=== PATIENT | male | born 1975 | race Caucasian/White ===

== ENCOUNTER 2024-12-12 08:47 | Emergency (ER) | payer BC, OTHER, SELFPAY ==
[2024-12-12 08:48] VITALS: BP 146/104; PULSE 76; RESP 20; TEMP 36.3; O2SAT 99
--- OUTSIDE RECORDS SUMMARY | 2024-12-12 08:54 | XMS_ITS | Encounter Summary ---
Author Organization [facility] Address [address] [place] [address] Care Team Providers Care Correction Officer Head Name Role Phone Jimbo Meier MD Primary Care Provider [phone] Encounter Details Date Type Department Care Team (Late st Contact Info) Description 12/09/2024 External Device Data [facility] ABSTRACTION Provider, Abstract NO ADDRESS ON FILE Social History Tobacco Use Types Packs/Day Years Used Date Smoking Tobacco: Never Passive Smoke Exposure: Never Smokeless Tobacco: Never Alcohol Use Standard Drinks/Week Comments Yes 3 (1 standard drink = 0.6 oz pur e alcohol) Feeling Safe Answer Date Recorded Are you in a relationship wi th someone who hurts you emotionally and/or physically? 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
--- OUTSIDE RECORDS SUMMARY | 2024-12-12 08:54 | XMS_ITS | Clinical Summary ---
Author Organization [facility] Address [address] [place] [address] Care Team Providers Care Automobile Spring Repairer Name Role Phone Jimbo Meier MD Primary Care Provider [phone] Allergies Active Allergy Reactions Criticality Noted Date Comments No Known Allergies 04/26/2004 Medications atenoloL (TENORMIN) 25 mg tablet Take 1 Tablet (25 mg) by mouth daily. 90 Tablet 3 1 Active Additional Information Patient not taking.Reported on 11/06/2023 buPROPion HCL (Wellbutrin XL) 300 mg Extended Release 24 hour tablet Take 1 Tablet (300 mg) by mouth daily in the morning. 30 Tablet 6 3 Active Additional Information Patient not taking.Reported on 11/06/2023 tadalafil (CIALIS) 5 mg tablet Take 1 Tablet (5 mg) by mouth 1 time daily as needed for Erectile Dysfunction. 90 Tablet 3 4 Active sildenafiL, pulm.hypertension , (REVATIO) 20 mg TabletIndications :Other male erectile dysfunction TAKE 1 TABLET (20 MG) BY MOUTH 1 TIME DAILY NEEDED (ED). 30 Tablet 6 5 Active dextroamphetamine -amphetamine (ADDERALL) 20 mg tabletIndications :Attention deficit disorder (ADD) without hyperactivity Take 1 Tablet (20 mg) by mouth 2 times daily. Max Daily Amount: 40 mg 60 Tablet 5 Active Active Problems Patient Care Coordination No te Formatting of this note migh t be different from the original. 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 10/23/2018 Vitamin B12 deficiency (non anemic) 10/23/2018 Adjustment reaction 08/08/2011 Male infertility, unspecified 10/08/2006 Resolved Problems Problem Noted Date Diagnosed Date Resolved Date ADD (attention deficit disorder) 11/24/2013 11/30/2016 Pain in limb 02/26/2006 08/08/2011 ACUTE SINUSITIS NOS 09/11/2004 08/08/19 12 GENITAL WARTS NOS 04/26/2004 08/08/2011 ALLERGY, UNSPECIFIED 04/26/2004 012 Encounters Date Type Department Care Team Description 12/09/2024 External Device Data [facility] ABSTRACTION Provider, Abstract 12/08/2024 External Device Data [facility] ABSTRACTION Provider, Abstract 11/10/2024 [facility] Care [address], [place] [address] Jimbo Meier MD Attention deficit disorder (ADD) without hyperactivity 11/03/2024 External Device Data [facility] ABSTRACTION Provider, Abstract 10/13/[address] [address] Jimbo Meier MD Attention deficit disorder (ADD) without hyperactivity 09/29/2024 External Device Data [facility] ABSTRACTION Provider, Abstract 09/29/2024 External Device Data [facility] ABSTRACTION Provider, Abstract 09/26/2024 External Device Data [facility] ABSTRACTION Provider, Abstract 09/25/2024 External Device Data [facility] ABSTRACTION Provider, Abstract 09/15/2024 External Device Data [facility] ABSTRACTION Provider, Abstract from Last 3 Months Immunizations Immunization Administration Dates Next Due (ADACEL/BOOSTRIX)(10 YR UP) TDAP VACCINE, 0.5ML, IM 03/06/2023,08/25/2013 Adacel Vaccine > 7 Yo IM 03/06/2023 Influenza Seasonal Unspecifi ed Formulation IM 04/21/2016,03/31/2015,2014 Family History Medical History Relation Name Comments Healthy Brother Healthy Father Hypertension Mother Colon Cancer Neg Hx Relation Name Status Comments Brother Father Mother Social History Tobacco Use Types Packs/Day Years Used Date Smoking Tobacco: Never Passive Smoke Exposure: Never Smokeless Tobacco: Never Tobacco Cessation:Counseling Given: Not Answered Alcohol Use Standard Drinks/Week Comments Yes 3 (1 standard drink = 0.6 oz pur e alcohol) Feeling Safe Answer Date Recorded Are you in a relationship wi th someone who hurts you emotionally and/or physically? 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 Gender Identity Not on file Sexual Orientation Not on file Occupation Industry Job Start Date Job End Date Not on file Not on file Not on file Not on file Last Filed Vital Signs Vital Sign Reading Time Taken Comments Blood Pressure 134/86 11/06/2023 10:43 AM CDT Pulse 64 11/06/2023 10:43 AM CDT Temperature 36.7 C (98.1 F) 11/06/2023 10:43 AM CDT Respiratory Rate 14 05/08/2023 1:54 PM CDT Oxygen Saturation 97% 11/06/2023 10: 43 AM CDT Inhaled Oxygen Concentration - - Weight 100.9 kg (222 lb 6.4 oz) 024 10:43 AM CDT Height 180.3 cm (5' 11 ) 11/06/2023 10: 43 AM CDT Body Mass Index 31.02 11/06/2023 10:43 AM CDT Plan of Treatment Health Maintenance Due Date Last Done Comments HEPATITIS B VACCINES (1 of 3 - 19+ 3-dose series) 1995 FIT-DNA Q 3 years 2021 FIT/FOBT Q 1 year 2021 Flex Sig/CT Colonography Q 5 years 2021 INFLUENZA VACCINE (#1) 2024 , 05/25/2021, 04/21/2016, Additional history exists Preventative Visit- Commercial 07/22/2024 0 03/06/2023, 02/01/2022, 05/25/2021, Additional history exists DTAP/TDAP/TD VACCINES (4 - T d or Tdap) 03/06/2033 03/06/2023, 03/06/2023, 08/25/2013 COLORECTAL SCREENING 04/17/2033 04/17/2023, 04/17/20 23 Colorectal Cancer Screening 04/17/2033 Procedures Procedure Name Priority Date/Time Associated Diagnosis Comments COLONOSCOPY REPORT 04/17/2023 9: 35 AM CDT from Last 3 Months or Most Recently Relevant to Health Maintenance Results * COLONOSCOPY REPORT (04/17/2023 9:35 AM CDT) Narrative Procedure Note Lula Goldman MD - 04/17/2023 9:35 AM CDT [facility] Endoscopy Patient Name: Isai Prakash Procedure Date: 04/17/2023 Date of : 1975 Attending MD: Lula Goldman MD, Procedure: Colonoscopy Indications: Screening for colorectal malignant neoplasm, first time. Providers: Lula Goldman MD Referring MD: Jimbo Meier MD Medicines: Monitored Anesthesia Care Complications: No immediate complications. Procedure: Informed consent was obtained for the procedure, including moderate sedation after risks were discussed. Based on the pre-procedure assessment, including review of the patient's medical history, medications, allergies, and review of systems, the patient was deemed to be an appropriate candidate for sedation. A timeout was performed. Continuous ECG monitoring, pulse oximetry, blood pressure monitoring, and direct observation were performed. The procedure was aborted. The colonoscope was not inserted. Medications were given. The colonoscopy was performed without difficulty. The quality of the bowel preparation was inadequate. Estimated Blood Loss: Estimated blood loss: none. Findings: Semi-liquid stool was found in the recto-sigmoid colon, in the descending colon and in the transverse colon, precluding visualization. Procedure stopped. Impression: - Preparation of the colon was inadequate. - Stool in the recto-sigmoid colon, in the descending colon and in the transverse colon. - No specimens collected. Recommendation: - Repeat colonoscopy in 6 months at time of repeat upper endoscopy. - Follow prep and clear liquid diet instructions next time, so that we can get a better look. Lula Goldman MD 04/17/2023 9:34:52 AM This report has been signed electronically. Number of Addenda: [address]; [place] [address] Lula Goldman MD GI PROCEDURE ORDERABLES Final Result from Last 3 Months or Most Recently Relevant to Health Maintenance Insurance [facility] BLUE PREFERRED Advance Directives For more information, please contact: [phone] * Full Code (Latest Code Status on File) Date Activated Date Inactivated Comments 04/17/2023 7:58 AM 04/17/2023 12:09 PM Care Teams Automobile Spring Repairer Relationship Specialty Start Date End Date Jimbo Meier MD [address] [place] [phone] PCP - General 02/17/07
--- OUTSIDE RECORDS SUMMARY | 2024-12-12 08:54 | XMS_ITS | Encounter Summary ---
Author Organization [facility] Address 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
--- OUTSIDE RECORDS SUMMARY | 2024-12-12 08:54 | XMS_ITS | Encounter Summary ---
Author Organization [facility] Address 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
--- OUTSIDE RECORDS SUMMARY | 2024-12-12 08:54 | XMS_ITS | Encounter Summary ---
Author Organization [facility] Address 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
--- OUTSIDE RECORDS SUMMARY | 2024-12-12 08:54 | XMS_ITS | Encounter Summary ---
Author Organization [facility] Address 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
--- OUTSIDE RECORDS SUMMARY | 2024-12-12 08:54 | XMS_ITS | Encounter Summary ---
Author Organization [facility] Address 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 HISTORY: sinus earnest, sore throat, cough, x 3-4 days, worse recently PHYSICAL EXAMINATION: EARS, NOSE, MOUTH AND THROAT: EARS: EFFUSION PRESENT BILATERALLY, TYMPANIC MEMBRANES INFLAMED BILATERALLY. ORAL: OROPHARYNX ERYTHEMATOUS. NECK/THYROID: Trachea midline. No thyroid enlargement, tenderness, or mass. No supraclavicular or cervical adenopathy. RESPIRATORY: Clear to auscultation and percussion. Normal respiratory effort. CARDIOVASCULAR: CARDIAC: Regular rhythm. No murmurs, rubs, or gallops. EDEMA/VARICOSITIES OF EXTREMITIES: No edema or varicosities. ASSESSMENT/PLAN: 461.9-SINUSITIS UNSPECIFIED rx MEDICATIONS: ZITHROMAX Z-JENNIFER ORAL TABLET 250 MG, DIRECTED, 1 Dispensed, 1 Fills, status: CONTINUED, 11/20/2006. FLONASE NASAL SUSPENSION 50 MCG/ACT, 2 Every Morning, 1 Fills, 30 Duration/Days Supply, status: NEWPRESCRIPTION, 11/20/2006. 606.9-MALE INFERTILITY discussed, analysis pend RETURN VISIT : Instructed to call if not improving. Electronically Signed by: Jimbo Meier MD on Monday, November 20, 2006 documented in this encounter Plan of Treatment Not on file documented as of this encounter Visit Diagnoses Not on filedocumented in this encounter Care Teams Director Of Food And Beverage Services Relationship Specialty Start Date End Date Jimbo Meier MD [address] [place] [phone] PCP - General 02/17/07 documented as of this encounter
--- OUTSIDE RECORDS SUMMARY | 2024-12-12 08:54 | XMS_ITS | Encounter Summary ---
Author Organization [facility] Address [address] [place] [address] Care Team Providers Care Med Peds Name Role Phone Jimbo Meier MD Primary Care Provider [phone] Encounter Details Date Type Department Care Team (Late st Contact Info) Description 02/09/2008 Outpatient Historical [facility] Dilia Gonsalez MD [address] [place] [address] [address] [place] [address] Social History Tobacco Use Types Packs/Day Years Used Date Smoking Tobacco: Never Alcohol Use Standard Drinks/Week Comments Yes 0 (1 standard drink = 0.6 oz pur e alcohol) Sex and Gender Information Value Date Recorded Sex Assigned at Not on file 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 Gender Identity Not on file Sexual Orientation Not on file documented as of this encounter Plan of Treatment Not on file documented as of this encounter Procedures Procedure Name Priority Date/Time Associated Diagnosis Comments PATHOLOGY Routine 02/09/2008 12:39 PM CDT documented in this encounter Results * PATHOLOGY (02/09/2008 12:39 PM CDT) FINAL REPORT [address] [address] Patient: ISAI WHITESIDE : 1975 Procedure Date: 02/09/2008 Accession Date: 02/09/2008 Case No: [id number] Ordering Dr: DILIA GONSALEZ Case types AW, BW, FW, NW and SH are performed by [facility] [place] [place], [place] SURGICAL PATHOLOGY & NON-GYNECOLOGIC CYTOPATHOLOGY REPORT DIAGNOSIS STOMACH, BIOPSY: - NO PATHOLOGIC DIAGNOSIS. ESOPHAGUS, BIOPSY: - CHRONIC INFLAMMATION, SLIGHT, COMPATIBLE WITH REFLUX. Specimen Description: (1) Gastric biopsy; (2) esophagus biopsy. Operative Procedure: EGD. Patient Information/History/Di agnosis: (1) Rule out H. pylori infection; (2) Rule out eosinophilic esophagitis. Gross: Two containers are received labeled Isai Whiteside. The first specimen is received in a container labeled biopsy gastric. It consists of a single piece of brooks tissue measuring 0.2 x 0.2 x 0.2 cm. The specimen is submitted entirely labeled A1. The second specimen is received in a container labeled cold biopsy esophagus. It consists of three pieces of translucent brooks tissue ranging from 0.1 to 0.2 cm in greatest dimension. The specimen is submitted entirely labeled B1. DONYA/NELDA 02.09.2008 02:36 pm Microscopic: The slides are labeled [id number], Olinda. Multiple levels of section of the gastric biopsy demonstrate fundic mucosa. No significant inflammation is identified. No organisms are seen with special stain for Helicobacter. Sections from the esophageal biopsy demonstrate esophageal squamous mucosa. A patchy lymphocytic infiltrate is focally present. There is no evidence of eosinophilic infiltrate. The features are suggestive of reflux. Note on use of immunocytochemistry reagents: This test was developed and its performance characteristic determined by [facility], Department of Laboratory Medicine. It has not been cleared or approved by the U.S. Food and Drug Administration. The FDA has determined that such clearance or approval is not necessary. The test is used for clinical purpose. It should not be regarded as investigational or for research. This laboratory is certified to perform high complexity clinical testing. [facility] 02.10.2008 10:59 am Staging Form: No ELECTRONIC SIGNATURE FOR MAURICE PULIDO M.D.- 02/10/08 03:59 pm INTERFACE SYSTEM Specimen of unknown material (specimen) 02/09/2008 12:39 PM CDT Dilia Gonsalez MD PATHOLOGY/CYTOLOGY ORDERABLE S Edited INTERFACE SYSTEM Refer to clinic/hospital department documented in this encounter Visit Diagnoses Not on filedocumented in this encounter Care Teams Med Peds Relationship Specialty Start Date End Date Jimbo Meier MD [address] [place] [phone] PCP - General 02/17/07 documented as of this encounter
--- OUTSIDE RECORDS SUMMARY | 2024-12-12 08:54 | XMS_ITS | Encounter Summary ---
Author Organization [facility] Address [address] [place] [address] Care Team Providers Care Multi Purpose Machine Operator Name Role Phone Jimbo Meier MD Primary Care Provider [phone] Encounter Details Date Type Department Care Team (Late st Contact Info) Description 11/20/2006 Outpatient [facility] Internal Medicine [address] [address] Jimbo Meier MD [address] [place] [address] [address] [place] [address] Social History Tobacco Use Types Packs/Day Years Used Date Smoking Tobacco: Never Assessed Sex and Gender Information Value Date Recorded Sex Assigned at Not on file 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 Gender Identity Not on file Sexual Orientation Not on file documented as of this encounter Last Filed Vital Signs Vital Sign Reading Time Taken Comments Blood Pressure 122/70 11/20/2006 10:15 AM CDT Pulse - - Temperature 36.4 C (97.6 F) 11/20/2006 10:15 AM CDT Respiratory Rate - - Oxygen Saturation - - Inhaled Oxygen Concentration - - Weight 96.2 kg (212 lb) 11/20/2006 10:15 AM CDT Height - - Body Mass Index - - documented in this encounter Plan of Treatment Not on file documented as of this encounter Visit Diagnoses Not on filedocumented in this encounter Care Teams Multi Purpose Machine Operator Relationship Specialty Start Date End Date Jimbo Meier MD [address] [address] [place] [phone] PCP - General 02/17/07 documented as of this encounter
--- OUTSIDE RECORDS SUMMARY | 2024-12-12 08:54 | XMS_ITS | Encounter Summary ---
Author Organization [facility] Address 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
--- OUTSIDE RECORDS SUMMARY | 2024-12-12 08:54 | XMS_ITS | Encounter Summary ---
Author Organization [facility] Address [address] [place] [address] Care Team Providers Care In Classroom Tutor Name Role Phone Jimbo Meier MD Primary Care Provider [phone] Encounter Details Date Type Department Care Team (Late st Contact Info) Description 10/24/2021 Refill [facility] Primary Care [address] [place] [address] Jimbo Meier MD [address] [place] [address] [address] [place] [address] Attention deficit disorder (ADD) without hyperactivity Social History Tobacco Use Types Packs/Day Years Used Date Smoking Tobacco: Never Smokeless Tobacco: Never Alcohol Use Standard Drinks/Week Comments Yes 0 (1 standard drink = 0.6 oz pur e alcohol) Sex and Gender Information Value Date Recorded Sex Assigned at Not on file 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 No / Unsure 09/25/2021 4:19 PM SENIOR LEAD J[employer] DEVELOPER documented as of this encounter Plan of Treatment Not on file documented as of this encounter Visit Diagnoses Diagnosis Attention deficit disorder (ADD) without hyperactivity documented in this encounter Care Teams In Classroom Tutor Relationship Specialty Start Date End Date Jimbo Meier MD [address] [place] [phone] PCP - General 02/17/07 documented as of this encounter
--- OUTSIDE RECORDS SUMMARY | 2024-12-12 08:54 | XMS_ITS | Encounter Summary ---
Author Organization [facility] Address [address] [place] [address] Care Team Providers Care Revenue Tax Specialist Name Role Phone Jimbo Meier MD Primary Care Provider [phone] Encounter Details Date Type Department Care Team (Late st Contact Info) Description 09/11/2004 Outpatient [facility] Internal Medicine [address] [address] Jimbo Meier MD [address] [place] [id number] Social History Tobacco Use Types Packs/Day Years Used Date Smoking Tobacco: Never Assessed Sex and Gender Information Value Date Recorded Sex Assigned at Not on file Legal Sex Male 4:59 AM LINEN CHECKER Gender Identity Not on file Sexual Orientation Not on file documented as of this encounter Last Filed Vital Signs Vital Sign Reading Time Taken Comments Blood Pressure 120/70 09/11/2004 4:00 PM LINEN CHECKER Pulse - - Temperature 37.9 C (100.3 F) 09/11/2004 4:00 PM LINEN CHECKER Respiratory Rate - - Oxygen Saturation - - Inhaled Oxygen Concentration - - Weight 90.3 kg (199 lb) 09/11/2004 4:00 PM LINEN CHECKER Height - - Body Mass Index - - documented in this encounter Plan of Treatment Not on file documented as of this encounter Visit Diagnoses Not on filedocumented in this encounter Care Teams Revenue Tax Specialist Relationship Specialty Start Date End Date Jimbo Meier MD [address] [address] PCP - General 02/17/07 documented as of this encounter
--- NOTE | 2024-12-12 09:11 | ED.DENTAL ---
HPI - Dental/Oral General Chief complaint: Dental/Oral Stated complaint: Mouth Pain Time Seen by Provider: 12/12/24 09:05 Source: patient and RN notes reviewed Mode of arrival: ambulatory Limitations: no limitations History of Present Illness HPI Narrative: 49-year-old male presents Express Care complaining of left lower dental pain for 1 week. Patient reports having history of cavities filled. Patient reports having pain with eating noticed swelling inside his left lower mouth. Patient denies any swelling or pain under his tongue, fevers, difficulty breathing, difficulty swallowing, or any other concerns. Patient says he has been taking a lot of ibuprofen to help with the pain with subtle relief. Patient rates his pain a 10. Patient was able to get a dental appointment next week. Patient also reports pain to the left upper gum line. Teeth map:  1. Pain and swelling 2. Pain Related Data Home Medications ?Medication ?Instructions ?Recorded ?Confirmed ?Last Taken ?Type dextroamphetamine-amphetamine 20 12/12/24 Unknown History mg tablet sildenafil (pulm.hypertension) 20 mg 12/12/24 Unknown History mg tablet Allergies Allergy/AdvReac Type Severity Reaction Status Date / Time No Known Allergies Allergy Verified 12/12/24 09:00 Review of Systems Review of Systems: CONSTITUTIONAL: Denies fever, chills, or sweats. EYES: Denies visual changes, redness, or discharge. ENT: Denies rhinorrhea, congestion, sore throat, trismus, difficulty swallowing, or otalgia. MOUTH: Positive for dental pain and swelling. Denies swelling under tongue or pain under tongue. CARDIOVASCULAR: Denies chest pain, palpitations, or edema. RESPIRATORY: Denies cough or dyspnea. GASTROINTESTINAL: Denies abdominal pain, nausea, vomiting, or diarrhea. GENITOURINARY: Denies dysuria or hematuria. SKIN: Denies rash or itching. MUSCULOSKELETAL: Denies back pain, joint pain, or myalgia. NEUROLOGIC: Denies headache, numbness, or weakness. PSYCHIATRIC: Denies anxiety or depression. All other systems reviewed are negative, except as documented in HPI. PMFSH Comments At the time of my signature, I reviewed and agree with the nursing past medical, surgical, social, and family history. There is no relevant family history pertinent to the patient complaint. Exam Narrative: GENERAL: This is a well-nourished, well-developed adult, in no apparent distress. They are non ill-appearing, nontoxic appearing. HEAD: normocephalic, atraumatic. EYES: Sclera clear/white. Conjunctiva normal. Vision is grossly intact. Extraocular movements intact EARS: External ears normal, Hearing grossly intact. NOSE: External nose normal THROAT: Mucous membranes moist, posterior pharynx clear, without erythema or swelling. Uvula midline. OROPHARYNX: Previous dental caries filled. No missing teeth. Left lower gum near 2nd molar is erythematous. No area of fluctuance or induration. Is tender to palpation. Left upper gum without erythema or swelling. No tenderness to palpation. Tongue is normal. No redness, swelling, or tenderness to palpation under the tongue. No suspicious lesions. NECK: Neck supple, non-tender without lymphadenopathy, masses or thyromegaly. CARDIOVASCULAR: Regular rate and rhythm RESPIRATORY: Respiratory rate normal, respiratory effort nonlabored, no respiratory distress SKIN: warm, Dry, intact with no suspicious lesions or rash, good texture and turgor. NEURO: awake, alert, and oriented to person, place and time. There were no obvious focal neurologic abnormalities. EXTREMITIES: No edema noted. Course Course Emergency Course: Portions of this record may have been created with voice recognition software Level of Care: Express Care Visit Vital Signs Vital signs: Vital Signs Temperature 97.4 F L 12/12/24 08:48 Pulse Rate 76 12/12/24 08:48 Respiratory Rate 20 12/12/24 08:48 Blood Pressure 146/104 H 12/12/24 08:48 Pulse Oximetry 99 12/12/24 08:48 Oxygen Delivery Room Air 12/12/24 08:48 Temperature 97.4 F L 12/12/24 08:48 Pulse Rate 76 12/12/24 08:48 Respiratory Rate 20 12/12/24 08:48 Blood Pressure 146/104 H 12/12/24 08:48 Pulse Oximetry 99 12/12/24 08:48 Oxygen Delivery Room Air 12/12/24 08:48 Reviewed MDM - Dental/Oral MDM Narrative Medical decision making narrative: This is likely the patient might be developing a dental abscess. Obvious erythema and swelling without area of fluctuance or induration. Patient has a follow-up appointment with the dentist next week. Go ahead and treat him empirically with Augmentin. Will also prescribe viscous lidocaine as needed for pain. Discussed physical exam findings. Advised supportive measures and signs/symptoms to go to the ER. Pt is appropriate for outpt treatment and f/u. Differential Diagnosis Differential diagnosis: Likely gingival abscess, dental caries and dental abscess Critical Care Time Critical Care Time Critical Care Time: No Discharge Plan Discharge Clinical Impression: Dental infection Patient Disposition: Home Condition: Stable Instructions: Antibiotic Form, Dental Abscess (ED), Mouth Care (ED) Additional Instructions: Take the antibiotics as directed. You may alternate Tylenol and ibuprofen as needed for pain. You may use viscous lidocaine as needed for pain in your mouth. Use a Q-tip and apply directly to the affected area. [place] your teeth and floss at least 2 times a day. You may use mouthwash after each brushing as well. Follow-up with dentist next week. He developed worsening swelling, fevers, difficulty swallowing or breathing, difficulty opening her jaw, swelling under the tongue, or any other concerns please go to the ER immediately. Patient Language: French Prescriptions: New amoxicillin-pot clavulanate 875-125 mg tablet 1 tablet PO Q12H 7 Days Qty: 14 0RF lidocaine HCl [Lidocaine Viscous] 2 % solution 1 applic mucous membrane TID PRN (Reason: dental pain) Qty: 100 0RF No Action dextroamphetamine-amphetamine 20 mg tablet sildenafil (pulm.hypertension) 20 mg tablet Follow-up/Referrals: Renea,Jimbo Blevins MD [Primary Care Provider] - Time of Disposition: 09:10
== END 2024-12-12 09:14 | disposition home or self-care (01) ==
PROVIDERS: PCP Internal Medicine
DX: K04.7 Periapical abscess without sinus (principal)
CPT/HCPCS: 99203; G0463